=== PATIENT | female | born 1955 ===

== ENCOUNTER 2018-08-05 18:06 | Emergency (ER) | payer OTHER ==
[2018-08-05] MEDS ORDERED: Apap-Butalbital-Caffeine 325-50-40mg Tab PO STA (19:48)
[2018-08-05] MEDS ORDERED: Apap-Butalbital-Caffeine 325-50-40mg Tab ONE (20:08)
--- NOTE | 2018-08-05 20:27 | C.PDOC ---
History Of Present Illness Patient is a 63 year old female, with a PMHx of allergies, who presents to the ED c/o frontal headache with nasal congestion x1 day. Patient states that her allergies will usually give her headaches with congestion, but patient is concerned because she has also experienced several episodes of vomiting and wants her blood pressure to be checked. Pt also requesting med refill for BP meds. Time Seen by Provider: 08/05/18 19:17 Chief Complaint (Nursing): Headache History Per: Patient History/Exam Limitations: no limitations Onset/Duration Of Symptoms: Days (1) Current Symptoms Are (Timing): Still Present Quality: "Pain" Recent travel outside of the [place]: No Additional History Per: Patient Past Medical History Reviewed: Historical Data, Nursing Documentation, Vital Signs Vital Signs: Last Vital Signs Temp 98.8 F 08/05/18 18:11 Pulse 63 08/05/18 18:46 Resp 18 08/05/18 18:46 BP 145/72 08/05/18 18:46 Pulse Ox 97 08/05/18 18:46 Primary Care Provider: FAMILY PROVIDER,NO - Medical History PMH: HTN Surgical History: No Surg Hx Family History: States: No Known Family Hx - Social History Hx Alcohol Use: No Hx Substance Use: No - Immunization History Hx Tetanus Toxoid Vaccination: No Hx Influenza Vaccination: Yes (2018) Hx Pneumococcal Vaccination: No Review Of Systems ENT: Positive for: Nose Congestion Gastrointestinal: Positive for: Vomiting Neurological: Positive for: Headache Physical Exam - Physical Exam Appears: Non-toxic, No Acute Distress Skin: Warm, Dry Head: Atraumatic, Normacephalic Eye(s): bilateral: Normal Inspection Nose: Tenderness (paransal sinus ) Oral Mucosa: Moist Neck: Normal ROM, Supple Cardiovascular: Rhythm Regular, No Murmur Respiratory: Normal Breath Sounds, No Rales, No Rhonchi, No Wheezing Neurological/Psych: Oriented x3, Normal Speech, Normal Cognition ED Course And Treatment O2 Sat by Pulse Oximetry: 97 (on RA) Pulse Ox Interpretation: Normal Progress Note: Plan: Fioricet 1 tab PO. Motrin 600mg PO. Pt remains comfortable in ED, reports feeling better and wants to go home. Reassessment Condition: Improved Disposition Counseled Patient/Family Regarding: Diagnosis, Need For Followup, Rx Given - Disposition Disposition: HOME/ ROUTINE Disposition Time: 20:25 Condition: STABLE Additional Instructions: Please follow up with PMD Take medications as directed Return to ER if worse Prescriptions: Acetaminophen/Butalbital/Caf [Fioricet] 1 tab PO TID PRN #20 tab PRN Reason: Headache Cetirizine HCl [Zyrtec] 10 mg PO DAILY #20 capsule Losartan/Hydrochlorothiazide [Hyzaar 100-12.5 Tablet] 1 each PO DAILY #30 tablet Ondansetron ODT [Zofran ODT] 1 odt PO BID PRN #6 odt PRN Reason: Nausea/Vomiting Instructions: Seasonal Allergies (DC), Headache, Adult (DC) Forms: [employer] (Mongolian) Print Language: HONDURAN - Clinical Impression Clinical Impression: Headache, Allergic rhinitis - PA / PHYSICIAN OFFICE SECRETARY / Resident Statement MD/DO has reviewed & agrees with the documentation as recorded. - Scribe Statement The provider has reviewed the documentation as recorded by the Uriel Hardy All medical record entries made by the [place]ina were at my direction and personally dictated by me. I have reviewed the chart and agree that the record accurately reflects my personal performance of the history, physical exam, medical decision making, and the department course for this patient. I have also personally directed, reviewed, and agree with the discharge instructions and disposition.
[2018-08-05 20:54] VITALS: BP 141/83; PULSE 67; RESP 16; TEMP 98.3
[2018-08-05 21:38] VITALS: O2SAT 97
== END 2018-08-05 20:53 | disposition home or self-care (01) ==
LOC: C.ER 18:06
DX: R51 Headache (principal); J30.9 Allergic rhinitis, unspecified; I10 Essential (primary) hypertension